=== PATIENT | male | born 1960 | race Caucasian/White ===

== ENCOUNTER 2018-12-29 18:30 | Emergency (ER) | payer OTHER ==
[2018-12-29] MEDS: 0.9 % SODIUM CHLORIDE 1,000 ML IV ONE (18:55)
--- NOTE | 2018-12-29 19:00 | ED Physician Documentation ---
Syncope/Near Syncope - HISTORIAN Historian: patient - HPI Stated Complaint: syncope Chief Complaint: Syncope Additional Information: Patient presents to ED via ambulance after a syncopal episode just prior to arrival. Patient has just finished eating dinner, stood up, took 5 steps, and fell backward. Patient's witnessed the episode and states he was unresponsive for about 15 seconds. She reports he hit the back of his head on the wall. She also reports the patient was diaphoretic and pale. Patient states he felt fine all day long. Tonight after dinner when he stood up he states he was dizzy and lightheaded. 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 He admits to chronic dehydration. He had 3 tall mixed drinks prior to dinner. He reports urinating this morning but has not urinated since. He denies chest pain or shortness of breath. Witnessed By: family Position at Time of Episode: standing Symptoms Prior to Episode: light-headed Character of Events(s): lost consciousness Symptoms after Event: denies: confused after event, incontinent of urine, incontinent of stool Location of Injury: none Associated Symptoms: feels back to normal. denies: chest pain, shortness of breath, nausea, vomiting - ROS CONST: recent illness (sinus infection) EYES/ENT: none GI/: denies: problems urinating MS/SKIN/LYMPH: denies: ankle swelling NEURO/PSYCH: denies: confusion - PAST HX Cardiac Disease: none PE Risk Factors: hypertension Surgeries/Procedures: none Allergies/Adverse Reactions: Allergies Allergy/AdvReac Type Severity Reaction Status Date / Time No Known Allergies Allergy Verified 12/29/18 18:49 Home Medications: Ambulatory Orders Medication Instructions Recorded Bupropion HCl [Bupropion Xl] 1 tab PO DAILY 12/29/18 Escitalopram Oxalate [Lexapro] 20 mg PO DAILY 12/29/18 Losartan Potassium [Cozaar] 100 mg PO DAILY 12/29/18 Nebivolol HCl [Bystolic] 1 tab PO DAILY 12/29/18 - SOCIAL HX Smoking History: non-smoker Alcohol Use: heavy Drug Use: none - FAMILY HX Family History: none - VITAL SIGNS Vital Signs: Vital Signs Temp Pulse Resp BP Pulse Ox 97.8 F 72 20 117/59 92 12/29/18 18:44 12/29/18 18:44 12/29/18 18:44 12/29/18 18:44 12/29/18 18:44 - REVIEWED ASSESSMENTS Nursing Assessment Reviewed: Yes Vitals Reviewed: Yes Progress - EKG/XRAY/CT EKG: NSR Comments: 1952 NSR [address] elevation ED Results Lab/Radiology - Lab Results Lab Results: Lab Results 12/29/18 12/29/18 12/29/18 19:25 19:25 19:25 WBC 8.20 K/ul K/ul (4.00-12.00) RBC 4.25 M/ul M/ul (3.90-5.20) Hgb 13.7 g/dL g/dL (12.0-18.0) Hct 39.7 % % (37.0-53.0) MCV 93.0 fl fl (80.0-100.0) MCH 32.1 pg pg (28.0-34.0) MCHC 34.4 g/dL g/dL (30.0-36.0) RDW 13.0 % % (11.3-14.3) Plt Count 176 K/mm3 K/mm3 (130-400) Neut % (Auto) 69.3 % % (39.0-79.0) Lymph % (Auto) 17.0 % % (16.0-50.0) [place] % (Auto) 10.5 % % (0.0-11.0) Eos % (Auto) 2.8 % % (0.0-6.8) Baso % (Auto) 0.4 % % (0.0-1.5) Neut # (Auto) 5.7 # k/uL # k/uL (1.4-7.7) Lymph # (Auto) 1.4 # k/uL # k/uL (0.6-4.0) [place] # (Auto) 0.9 # k/uL # k/uL (0.0-0.9) Eos # (Auto) 0.2 # k/uL # k/uL (0.0-0.6) Baso # (Auto) 0.0 # k/uL # k/uL (0.0-0.5) Sodium 143 mmol/L mmol/L (137-145) Potassium 4.3 mmol/L mmol/L (3.5-5.1) Chloride 103 mmol/L mmol/L (98-107) Carbon Dioxide 24 mmol/L mmol/L (22-30) Anion Gap 20.3 BUN 28 mg/dL H mg/dL (9-20) Creatinine 2.18 mg/dL H mg/dL (0.66-1.25) Estimated Creat Clear 52 Est GFR ( Amer) 40 L (60 - ) Est GFR (Non-Af Amer) 33 L (60 - ) Glucose 99 mg/dL mg/dL (74-106) Calcium 8.9 mg/dL mg/dL (8.4-10.2) Total Bilirubin 0.4 mg/dL mg/dL (0.2-1.3) AST 33 U/L U/L (15-46) ALT 53 U/L U/L (13-69) Alkaline Phosphatase 82 U/L U/L (38-126) Troponin I < 0.012 ng/mL L ng/mL (0.012-0.034) NT-Pro-B Natriuret Pep 32.7 pg/mL pg/mL (15.0-125.5) Total Protein 7.6 g/dL g/dL (6.3-8.2) Albumin 4.3 g/dL g/dL (3.5-5.0) Ethyl Alcohol 80.1 mg/dL H mg/dL (0.0-10.0) - Radiology Radiology Impressions: Report Submission Date: Dec 29, 2018 7:52:19 PM CDT Patient Study Name: DIXIE ANSARI Date: Dec 29, 2018 7:23:13 PM CDT Modality Type: CT\SR Gender: M Description: CT BRAIN W/O CONTRAST : 62 Institution: [facility] Physician: SANDRA POP Head CT without contrast Clinical history: Syncope. Technique: CT examination of the brain is performed in contiguous axial slices. Findings: The 4th ventricle lies in a normal midline position. The ventricles and sulci are mildly prominent consistent with atrophy. There is no hypodense or hyperdense mass or intracranial hemorrhage. Visualized paranasal sinuses and the mastoid air cells are clear. Impression: 1. Mild atrophy. 2. No acute intracranial changes. Electronically signed on Dec 29, 2018 7:52:19 PM CDT by: Jose Soliman Report Submission Date: Dec 29, 2018 7:53:05 PM CDT Patient Study Name: DIXIE ANSARI Date: Dec 29, 2018 7:21:55 PM CDT Modality Type: DX Gender: M Description: CHEST 1VIEW : 62 Institution: [facility] Physician: SANDRA POP AP chest Clinical history: Syncope. Findings: Examination of the chest in AP view demonstrates lungs to be clear. Cardiovascular and mediastinal silhouettes are within normal limits. Bony thorax appears intact. Impression: 1. Negative chest. Electronically signed on Dec 29, 2018 7:53:05 PM CDT by: Jose Soliman - Orders Orders: ED Orders Category Date Time Status Place IV Lock 1T Care 12/29/18 18:43 Active CHEST 1VIEW [RAD] Stat Exams 12/29/[address] BRAIN W/O CONTRAST Stat Exams 12/29/18 Completed ALCOHOL MEDICAL USE ONLY Stat Lab 12/29/18 19:25 Completed CBC/PLATELET/DIFF Routine Lab 12/29/18 19:25 Completed CMP Routine Lab 12/29/18 19:25 Completed NT BNP Stat Lab 12/29/18 19:25 Completed TROPONIN I Stat Lab 12/29/18 19:25 Completed 0.9 % Sodium Chloride [Normal Saline] 1,000 ml Med 12/29/18 18:54 Discontinued IV Q1H EKG WITH COMPARISON Stat Ther 12/29/18 Ordered Syncope Physical Exam - Physical Exam General Appearance: no acute distress, alert EENT: nml eye inspection, PERRL Neck/Back: neck supple, non-tender Respiratory: no resp distress, chest non-tender, breath sounds normal CVS: reg rate & rhythm, heart sounds normal Abdomen: non-tender Skin: warm/dry Extremities: non-tender - Neuro/Psych Higher Functions: alert, oriented x3, no evidence of acute CVA, mood/affect nml Cranial Nerves: nml as tested Cerebellar: nml as tested Sensorimotor: nml motor response Discharge Clincal Impression: Vasovagal syncope Referrals: Favian Miguel MD [Primary Care Provider] - 2 Days Additional Instructions: 1. Drink plenty of fluids to maintain proper hydration. Avoid caffeine and alcohol. 2. Follow up with PCP within 4 days. 3. Follow up with [facility] as soon as possible. Discuss possible stress test and echocardiogram 4. Return to ER with new or worsening symptoms Condition: Stable Disposition: 01 HOME, SELF-CARE Decision to Admit: NO Date of Decison to Admit: 12/29/18 Decision Time: 20:37
--- NOTE | 2018-12-29 19:57 | Diagnostic Imaging Report ---
SANDRA POP [facility] [address] [facility] [address] [place], [place]. [address] Report Submission Date: Dec 29, 2018 7:52:19 PM CDT Patient Study Name: DIXIE ANSARI Date: Dec 29, 2018 7:23:13 PM CDT Modality Type: CT\SR Gender: M Description: CT BRAIN W/O CONTRAST : 62 Institution: [facility] Physician: SANDRA POP Head CT without contrast Clinical history: Syncope. Technique: CT examination of the brain is performed in contiguous axial slices. Findings: The 4th ventricle lies in a normal midline position. The ventricles and sulci are mildly prominent consistent with atrophy. There is no hypodense or hyperdense mass or intracranial hemorrhage. Visualized paranasal sinuses and the mastoid air cells are clear. Impression: 1. Mild atrophy. 2. No acute intracranial changes. Electronically signed on Dec 29, 2018 7:52:19 PM CDT by: Jose CARO
--- NOTE | 2018-12-29 19:58 | Diagnostic Imaging Report ---
SANDRA POP [facility] [address] [facility] [address] [address] Report Submission Date: Dec 29, 2018 7:53:05 PM CDT Patient Study Name: DIXIE ANSARI Date: Dec 29, 2018 7:21:55 PM CDT Modality Type: DX Gender: M Description: CHEST 1VIEW : 62 Institution: [facility] Physician: SANDRA POP AP chest Clinical history: Syncope. Findings: Examination of the chest in AP view demonstrates lungs to be clear. Cardiovascular and mediastinal silhouettes are within normal limits. Bony thorax appears intact. Impression: 1. Negative chest. Electronically signed on Dec 29, 2018 7:53:05 PM CDT by: Jose CARO
[2018-12-29 20:00] LABS: BASOPHILS % 0.4 % (0.0-1.5); NEUTROPHILS # 5.7 # k/uL (1.4-7.7)
[2018-12-29 22:11] VITALS: BP 133/57
== END 2018-12-29 20:05 | disposition home or self-care (01) ==
LOC: ED 18:30
DX: R55 Syncope and collapse (principal)
CPT/HCPCS: 70450; 71045; 80053; 80320; 83880; 84484; 85025; 96360; 99282; 99284; J7030; 93005; G0480